=== PATIENT | male | born 1985 | race Caucasian/White ===

== ENCOUNTER 2024-02-17 22:47 | Emergency (ER) | payer BC, SELFPAY ==
[2024-02-17 23:04] VITALS: BP 108/76
--- NOTE | 2024-02-17 23:16 | ED.GENMED ---
Addendum entered and electronically signed by Mikey Jones DO 02/18/24 09:58:
Call from radiology positive fracture, chart reviewed patient splinted, was given the number for orthopedics, I left a message with the salesperson women's dresses his Bridgette encouraged them to use the splint and follow-up with orthopedics
Original Note:
History of Present Illness
General
Chief Complaint: Musculo-Skeletal Complaint
Time Seen by Provider: 02/17/24 23:16
History of Present Illness
History of Present Illness:
TIME OF INITIAL ENCOUNTER: 11:20 PM
HPI: The patient states that he went out to that she had and punched the door of the shed as he was angry. Small lacerations are noted and he is concerned of the possibility of a right hand fracture.
EXAM:
GENERAL: Well appearing in no distress
HEENT: Moist oral mucosa
NEUROLOGIC: Excellent strength all extremities, no obvious coordination deficits
PSYCHIATRIC: Appropriate mental status, normal insight and judgement
EXTREMITIES: Tenderness is noted to the distal aspects of the distal third and fourth metacarpals however the majority of the pain is in between these 2 bones
SKIN: Superficial lacerations noted to the fingers of the right hand
NUMBER AND COMPLEXITY OF PROBLEMS ADDRESSED AT THE ENCOUNTER
� Chronic conditions affecting care: History of substance abuse
� Acute Exacerbation and/or Progression of Chronic Illness: This is an acute problem
� Differential Diagnosis includes: Hand contusion, hand fracture, wrist sprain, lacerations
AMOUNT AND/OR COMPLEXITY OF DATA TO BE REVIEWED AND ANALYZED
� I performed an independent evaluation of and my interpretation is:
EKG:
CT:
X-rays: No definite fracture
Laboratory Studies:
Other:
� Review of other/old records: No old records available for review in [facility]
� Clinical information was obtained by an independent historian: None needed
� Prescriptions/Medications Considered but not given: Declines narcotic analgesia
� Further testing considered but not performed:
RISK OF COMPLICATIONS AND/OR MORBIDITY OR MORTALITY OF PATIENT MANAGEMENT
� Social determinants of health affecting care: Remote history of substance abuse
� Discussion with other providers:
� Escalation of care including admission/observation vs risk of discharge considered: I do not see any signs of fracture. The wound was cleaned and irrigated and we did place tissue adhesive. He is to follow-up with orthopedics
if symptoms persist.
ANY OTHER UPDATES:
Phy Exam
Physical Exam
Physical Exam:
See HPI
Course
Orders/Labs/Results
Orders:
Orders
02/17/24 22:53
Hand, Right 3 View [CR Hand - Right Min 3 Views] Urgent
Comment:
Reason For Exam: injury and pain.
02/17/24 23:42
Splints/Slings/Crut- Treatment ONCE
Location: Right
Type of Splint: [place] Wrist
Vital Signs
Initial and Last Documented VS:
Initial Vital Signs
Temp Pulse Resp BP Pulse Ox
98.2 F 98 18 108/76 98
02/17/24 23:04 02/17/24 23:04 02/17/24 23:04 02/17/24 23:04 02/17/24 23:04
Last Documented Vital Signs
Temp Pulse Resp BP Pulse Ox
98.2 F 98 18 108/76 98
02/17/24 23:04 02/17/24 23:04 02/17/24 23:04 02/17/24 23:04 02/17/24 23:04
Procedures
Laceration Closure
Right Middle Finger:
Status of Wound: clean
Description of Wound Edges: ragged
Preparation: cleaned with saline
Wound exploration: explored to base- no FB
Type of Closure: Dermabond-skin glue
Additional information:
Tissue adhesive used
*Critical Care Note
Total Time (30-74mins, 75-104mins- exclusive of procedures): Not Applicable
ED Attending Note
-
Portions of this chart may have been created with voice recognition software.� Occasional wrong word or��sound alike� substitutions may have occurred due to the inherent limitations of voice recognition software.
Discharge Plan
Departure
Patient Disposition: Home (Routine Discharge)
Date of Disposition: 02/17/24
Time of Disposition: 23:56
Patient with high blood pressure during this ER visit?: Yes
Discharge Problem:
Contusion of hand
Instructions: Contusion (DC)
Referrals:
Michoacano Jacobs MD [Active] - Follow up in 5-7 days
Activity Restrictions/Additional Instructions:
I do not see any definite sign of fracture. We have given you a splint. Have given you the contact information for a local orthopedist to follow-up with if symptoms persist. Please follow-up with your primary care doctor. I recommend 3-4
[id number] ibuprofen (Motrin) every 8 hours with food for a few days. Return here if worse.
Interventions
Interventions:
*Risk Screen - Suicide Last Done: 02/17/24 22:49
*General Assessment Last Done: 02/17/24 22:49
*Neglect/Abuse Screening Last Done: 02/17/24 22:49
Discharge Date and Time
Print Language: [place]
[2024-02-18] VITALS: BP 112/79
--- NOTE | 2024-02-26 08:03 | ED.ADDNOTE ---
ED Addendum
ED Addendum
ED Addendum Note:
ADDENDUM TO NOTE FROM 02/17/2024 - Laceration to finger of affected hand measured 1.5cm
== END 2024-02-18 00:14 | disposition home or self-care (01) ==
LOC: EMR 22:47
PROVIDERS: EMERGENCY PHYSICIAN Emergency Medicine
DX: S62.141A Displaced fracture of body of hamate [unciform] bone, right wrist, initial encounter for closed fracture (principal); S61.214A Laceration without foreign body of right ring finger without damage to nail, initial encounter; S61.212A Laceration without foreign body of right middle finger without damage to nail, initial encounter; W22.09XA Striking against other stationary object, initial encounter
CPT/HCPCS: 12001; 29125; 73130; 99283

== ENCOUNTER → 2024-02-20 11:39 | Outpatient (REF) | payer BC, SELFPAY | LOC: HWRAD 11:39 | PROVIDERS: ATTENDING PHYSICIAN Physician Assistant; FAMILY PHYSICIAN Family Medicine | DX: M25.531 Pain in right wrist (principal) | CPT/HCPCS: 73200 ==